=== PATIENT | male | born 1960 | race Caucasian/White ===

== ENCOUNTER 2022-07-10 12:27 | Inpatient (IN) ==
[2022-07-10 13:37] LABS: Basophils # 0.1 K/mcL (0.0-0.2); Basophils % 0.7 %; Eosinophils # 0.1 K/mcL (0.0-0.6); Eosinophils % 0.9 %; Hematocrit 43.2 % (37.5-50.1); Immature Granulocytes % 0.4 % (0-4); Lymphocytes # 2.7 K/mcL (0.6-4.6); Lymphocytes % 26.2 %; Mean Corpuscular HGB Conc 32.4 g/dL (31.6-35.5); Mean Corpuscular Hemoglobin 26.8 pg (28.0-33.3); Mean Corpuscular Volume 82.8 fL (83.0-100.0); Mean Platelet Volume 10.4 fL (9.4-12.4); Monocytes # 0.9 K/mcL (0.0-1.3); Neutrophils # 6.5 K/mcL (1.6-8.9); Platelet Count 278 K/mcL (140-400); Red Blood Count 5.22 M/mcL (4.19-5.50); Red Cell Distribution Width 13.4 % (11.5-14.5); Segmented Neutrophils % 62.8 %; White Blood Count 10.3 K/mcL (4.3-11.1)
[2022-07-10 13:45] LABS: Activated Partial Thrombo Time 37.1 Seconds (26.0-36.0)
[2022-07-10 13:58] LABS: BUN/Creatinine Ratio 16 (6-26); Blood Urea Nitrogen 16 mg/dL (8-23); Calcium 9.2 mg/dL (8.6-10.3); Carbon Dioxide 28 mEq/L (23-29); Chloride 105 mEq/L (98-107); Glucose 92 mg/dL (70-105); Magnesium 2.1 mg/dL (1.6-2.6); Osmolality,Calculated 287 (280-300); Potassium 4.2 mEq/L (3.5-5.1); Sodium 138 mEq/L (136-145)
[2022-07-10 13:59] LABS: Troponin I < 0.03 ng/mL (< 0.04)
[2022-07-10 14:14] LABS: Thyroid Stimulating Hormone 4.343 mcIU/mL (0.340-5.600)
[2022-07-10] MEDS ORDERED: Naloxone 0.4 MG/ML INJ IVP PRN (15:59)
[2022-07-10] MEDS ORDERED: D5% in Water 1,000 ML IVC PRN (17:32)
[2022-07-10] MEDS ORDERED: *HR* Dextrose 50 % in Water (Syg) 50 ML SYRINGE IVP PRN (17:32)
[2022-07-10] MEDS ORDERED: Dextrose Gel 15 GM/37.5 ML TUBE PO PRN ×2 (17:32)
[2022-07-10] MEDS ORDERED: Doxycycline 100 MG CAPSULE PO SCH (21:00)
[2022-07-10] MEDS ORDERED: *HR* Atropine Sulfate 1 MG/10 ML SYRINGE IVP PRN (23:55)
[2022-07-11] MEDS: cefTRIAXone 2,000 MG in 0.9 % Sodium Chloride Mini Bag 100 ML IVPB SCH ×2 (00:59→23:42)
[2022-07-11 03:10] LABS: Hematocrit 43.1 % (37.5-50.1); Hemoglobin 13.8 g/dL (12.9-16.9); Mean Corpuscular Hemoglobin 26.9 pg (28.0-33.3); Mean Platelet Volume 10.7 fL (9.4-12.4); Platelet Count 257 K/mcL (140-400); Red Blood Count 5.13 M/mcL (4.19-5.50); Red Cell Distribution Width 13.3 % (11.5-14.5); White Blood Count 10.3 K/mcL (4.3-11.1)
[2022-07-11 03:31] LABS: BUN/Creatinine Ratio 19 (6-26); Blood Urea Nitrogen 17 mg/dL (8-23); Calcium 8.7 mg/dL (8.6-10.3); Carbon Dioxide 26 mEq/L (23-29); Chloride 110 mEq/L (98-107); Glucose 90 mg/dL (70-105); Osmolality,Calculated 295 (280-300); Phosphorous 2.9 mg/dL (2.7-4.5); Potassium 4.2 mEq/L (3.5-5.1); Sodium 142 mEq/L (136-145)
[2022-07-11] MEDS ORDERED: Doxycycline 100 MG CAPSULE PO SCH (09:00)
[2022-07-11] MEDS: Doxycycline 100 MG CAPSULE PO SCH ×2 (11:14→19:58)
[2022-07-11] MEDS: lisinopriL 20 MG TABLET PO SCH (11:14)
[2022-07-11] MEDS: Aspirin Enteric Coated 81 MG Tablet PO SCH (11:15)
[2022-07-11] MEDS ORDERED: 0.9 % Sodium Chloride 2,000 ML ONE (11:52)
[2022-07-11] MEDS ORDERED: *HR* FentaNYL (PF) 100 MCG/2 ML VIAL ONE (11:52)
[2022-07-11] MEDS ORDERED: *HR* Midazolam HCl 2 MG/2 ML VIAL ONE (11:52)
[2022-07-11] MEDS ORDERED: Heparin 1,000 UNITS/500 mL 500 ML ONE (11:53)
[2022-07-11] MEDS ORDERED: *HR* Heparin 10,000 UNIT/10 ML VIAL ONE (11:53)
[2022-07-11] MEDS ORDERED: Nitroglycerin 1,000 MCG/5 ML VIAL IV ONE (11:53)
[2022-07-11] MEDS ORDERED: Iopamidol - 370 200 ML INFUS..BTL ONE (11:53)
[2022-07-12 02:29] LABS: Hematocrit 43.7 % (37.5-50.1); Hemoglobin 14.3 g/dL (12.9-16.9); Mean Corpuscular HGB Conc 32.7 g/dL (31.6-35.5); Mean Corpuscular Hemoglobin 26.7 pg (28.0-33.3); Mean Corpuscular Volume 81.7 fL (83.0-100.0); Mean Platelet Volume 10.7 fL (9.4-12.4); Platelet Count 273 K/mcL (140-400); Red Blood Count 5.35 M/mcL (4.19-5.50); Red Cell Distribution Width 13.2 % (11.5-14.5)
[2022-07-12 02:50] LABS: Calcium 8.8 mg/dL (8.6-10.3)
[2022-07-12] MEDS ORDERED: *HR* Atropine Sulfate 1 MG/10 ML SYRINGE ONE (03:01)
[2022-07-12] MEDS ORDERED: *HR* Atropine Sulfate 1 MG/10 ML SYRINGE IVP STA (03:01)
[2022-07-12] MEDS ORDERED: *HR* Atropine Sulfate 1 MG/10 ML SYRINGE IVP PRN (04:00)
[2022-07-12] MEDS: lisinopriL 20 MG TABLET PO SCH (07:51)
[2022-07-12] MEDS: Aspirin Enteric Coated 81 MG Tablet PO SCH (07:51)
[2022-07-12] MEDS: Doxycycline 100 MG CAPSULE PO SCH ×2 (07:51→21:22)
[2022-07-12] MEDS ORDERED: *HR* Midazolam HCl 5 MG/5 ML VIAL IVP ONE ×2 (08:06→08:19)
[2022-07-12] MEDS ORDERED: 0.9 % Sodium Chloride 500 ML ONE (08:11)
[2022-07-12] MEDS ORDERED: Ondansetron 4 MG/2 ML VIAL ONE (08:25)
[2022-07-12] MEDS ORDERED: 0.9 % Sodium Chloride 1,000 ML ONE (08:49)
[2022-07-12] MEDS ORDERED: Heparin 1,000 UNITS/500 mL 500 ML ONE (08:49)
[2022-07-12] MEDS ORDERED: Iopamidol - 370 200 ML INFUS..BTL ONE (08:49)
[2022-07-12] MEDS ORDERED: *HR* Heparin 10,000 UNIT/10 ML VIAL ONE (08:49)
[2022-07-12] MEDS ORDERED: *HR* FentaNYL (PF) 100 MCG/2 ML VIAL ONE (09:38)
[2022-07-12] MEDS ORDERED: *HR* Midazolam HCl 2 MG/2 ML VIAL ONE (09:38)
[2022-07-12] MEDS ORDERED: 0.9 % Sodium Chloride 250 ML ONE (09:39)
[2022-07-13] MEDS: cefTRIAXone 2,000 MG in 0.9 % Sodium Chloride Mini Bag 100 ML IVPB SCH (00:50)
[2022-07-13 06:25] LABS: Hematocrit 46.8 % (37.5-50.1); Hemoglobin 15.2 g/dL (12.9-16.9); Mean Corpuscular HGB Conc 32.5 g/dL (31.6-35.5); Mean Corpuscular Hemoglobin 26.9 pg (28.0-33.3); Mean Corpuscular Volume 82.8 fL (83.0-100.0); Mean Platelet Volume 10.7 fL (9.4-12.4); Platelet Count 249 K/mcL (140-400); Red Blood Count 5.65 M/mcL (4.19-5.50); Red Cell Distribution Width 13.3 % (11.5-14.5); White Blood Count 12.8 K/mcL (4.3-11.1)
[2022-07-13 06:39] LABS: Potassium 4.4 mEq/L (3.5-5.1)
[2022-07-13] MEDS: Doxycycline 100 MG CAPSULE PO SCH ×2 (08:36→21:24)
[2022-07-13] MEDS: lisinopriL 20 MG TABLET PO SCH (08:36)
[2022-07-13] MEDS: Aspirin Enteric Coated 81 MG Tablet PO SCH (08:36)
[2022-07-13] MEDS: Acetaminophen 325 MG TABLET PO PRN (11:18)
[2022-07-14] MEDS: cefTRIAXone 2,000 MG in 0.9 % Sodium Chloride Mini Bag 100 ML IVPB SCH ×2 (01:15→23:55)
[2022-07-14 02:51] LABS: Calcium 8.8 mg/dL (8.6-10.3); Phosphorous 3.8 mg/dL (2.7-4.5); Potassium 3.6 mEq/L (3.5-5.1)
[2022-07-14] MEDS: lisinopriL 20 MG TABLET PO SCH (09:10)
[2022-07-14] MEDS: Doxycycline 100 MG CAPSULE PO SCH ×2 (09:10→20:32)
[2022-07-14] MEDS: Aspirin Enteric Coated 81 MG Tablet PO SCH (09:10)
[2022-07-14] MEDS ORDERED: lisinopriL 20 MG TABLET PO ONE (09:30)
[2022-07-14] MEDS ORDERED: *HR* Midazolam HCl 2 MG/2 ML VIAL ONE (14:21)
[2022-07-14] MEDS ORDERED: 0.9 % Sodium Chloride 500 ML ONE ×2 (14:21→14:32)
[2022-07-14] MEDS ORDERED: *HR* FentaNYL (PF) 100 MCG/2 ML VIAL ONE (14:21)
[2022-07-14] MEDS ORDERED: *HR* OxyCODONE Immed Rel 5 MG TABLET PO PRN (15:33)
[2022-07-14] MEDS: Acetaminophen 325 MG TABLET PO PRN (22:49)
[2022-07-15 03:13] LABS: Basophils # 0.1 K/mcL (0.0-0.2); Basophils % 0.4 %; Eosinophils # 0.1 K/mcL (0.0-0.6); Eosinophils % 0.5 %; Hematocrit 46.6 % (37.5-50.1); Hemoglobin 15.3 g/dL (12.9-16.9); Immature Granulocytes % 0.6 % (0-4); Lymphocytes # 1.3 K/mcL (0.6-4.6); Lymphocytes % 9.8 %; Mean Corpuscular HGB Conc 32.8 g/dL (31.6-35.5); Mean Corpuscular Volume 82.3 fL (83.0-100.0); Mean Platelet Volume 10.7 fL (9.4-12.4); Monocytes # 1.1 K/mcL (0.0-1.3); Monocytes % 8.4 %; Neutrophils # 10.8 K/mcL (1.6-8.9); Platelet Count 236 K/mcL (140-400); Red Blood Count 5.66 M/mcL (4.19-5.50); Red Cell Distribution Width 13.6 % (11.5-14.5); Segmented Neutrophils % 80.3 %; White Blood Count 13.5 K/mcL (4.3-11.1)
[2022-07-15 03:30] LABS: BUN/Creatinine Ratio 27 (6-26); Blood Urea Nitrogen 25 mg/dL (8-23); Carbon Dioxide 24 mEq/L (23-29); Chloride 106 mEq/L (98-107); Potassium 4.2 mEq/L (3.5-5.1); Sodium 137 mEq/L (136-145)
[2022-07-15] MEDS: Aspirin Enteric Coated 81 MG Tablet PO SCH (07:56)
[2022-07-15] MEDS: Doxycycline 100 MG CAPSULE PO SCH (07:56)
[2022-07-15] MEDS ORDERED: lisinopriL 20 MG TABLET PO SCH (09:00)
[2022-07-15 15:20] VITALS: BP 165/86; TEMP 98.7; O2SAT 97
[2022-07-15] MEDS: cefTRIAXone 2,000 MG in 0.9 % Sodium Chloride Mini Bag 100 ML IVPB SCH (17:14)
[2022-07-15 17:18] VITALS: PULSE 64
== END 2022-07-15 18:03 | disposition home health service (06) | DRG 287 ==
LOC: EMEROOARM 12:27 → SUATTDRO 19:39 → 2NNU 19:39
PROVIDERS: ADMIT Student in an Organized Health Care Education/Training Program; ATTEND Internal Medicine